=== PATIENT | male | born 1965 | race Two or more races ===

== ENCOUNTER 2019-05-16 11:36 | Emergency (ER) | payer SELFPAY ==
[~2019-05-16] VITALS: Ht 177.8 cm; Wt 99.8 kg
[2019-05-16 12:23] VITALS: BP 173/101
[2019-05-16] MEDS ORDERED: cloNIDine HCL 0.1 MG TAB PO ONE (13:15)
[2019-05-16 13:39] LABS: Basophils # (auto) 0.1 uL; Basophils % (auto) 0.9 % (0.0-2.0); Eosinophils # (auto) 0.1 uL; Eosinophils % (auto) 1.6 % (0.0-7.0); Hematocrit 50.7 % (41.0-53.0); Hemoglobin 17.1 g/dL (13.5-17.5); Lymphocytes # (auto) 2.5 uL; Lymphocytes % (auto) 27.3 % (10.0-50.0); Mean Corpuscular Hemoglobin 32.4 pg (28.0-32.0); Mean Corpuscular Hgb Conc. 33.7 g/dL (32.0-36.0); Mean Corpuscular Volume 96.2 fL (80.0-100.0); Monocytes # (auto) 0.4 uL; Monocytes % (auto) 4.6 % (0.0-12.0); Neutrophils # (auto) 6.1 uL; Neutrophils % (auto) 65.6 % (37.0-80.0); Nucleated Red Blood Cells % 0.1 %; Platelet Count (auto) 261 10^3/uL (140-450); Red Blood Cells 5.27 10^6/uL (4.5-5.90); Red Cell Distribution Width 15.6 % (11.8-14.3); White Blood Cell 9.3 10^3/uL (4.4-10.8)
[2019-05-16 13:57] LABS: Albumin 4.3 g/dL (3.4-5.0); BUN/Creatinine Ratio 9.7; Calcium 9.2 mg/dL (8.5-10.1); Potassium 4.1 mmol/L (3.5-5.1)
[2019-05-16 14:00] LABS: Bilirubin, Total 0.3 mg/dL (0.2-1.0)
[2019-05-16] MEDS ORDERED: cefTRIAXone 1GM/50ML D5W 50 ML IV ONE (14:00)
== END 2019-05-16 16:40 | disposition left against medical advice (07) ==
LOC: ER 11:43
DX: J18.1 Lobar pneumonia, unspecified organism (principal); M79.672 Pain in left foot; I10 Essential (primary) hypertension; F17.210 Nicotine dependence, cigarettes, uncomplicated; Z53.29 Procedure and treatment not carried out because of patient's decision for other reasons
CPT/HCPCS: 36415; 71046; 73630; 80053; 83735; 84484; 85025; 93005; 94761

== ENCOUNTER 2019-05-17 13:29 | Inpatient (IN) | payer SELFPAY ==
[~2019-05-17] VITALS: Ht 177.8 cm; Wt 99.8 kg
[2019-05-17 14:11] LABS: Basophils # (auto) 0.1 uL; Basophils % (auto) 1.2 % (0.0-2.0); Eosinophils # (auto) 0.2 uL; Eosinophils % (auto) 1.7 % (0.0-7.0); Hematocrit 49.8 % (41.0-53.0); Lymphocytes # (auto) 2.6 uL; Lymphocytes % (auto) 28.1 % (10.0-50.0); Mean Corpuscular Hemoglobin 32.6 pg (28.0-32.0); Mean Corpuscular Hgb Conc. 34.1 g/dL (32.0-36.0); Mean Corpuscular Volume 95.5 fL (80.0-100.0); Monocytes # (auto) 0.5 uL; Monocytes % (auto) 5.5 % (0.0-12.0); Neutrophils % (auto) 63.5 % (37.0-80.0); Nucleated Red Blood Cells % 0.1 %; Platelet Count (auto) 259 10^3/uL (140-450); Red Blood Cells 5.22 10^6/uL (4.5-5.90); Red Cell Distribution Width 15.6 % (11.8-14.3); White Blood Cell 9.4 10^3/uL (4.4-10.8)
[2019-05-17 14:31] LABS: Alanine Aminotransferase 20 U/L (16-61); Albumin 3.8 g/dL (3.4-5.0); Anion Gap 5 (5-15); Aspartate Aminotransferase 14 U/L (15-37); BUN/Creatinine Ratio 13.7; Blood Urea Nitrogen 14 mg/dL (7-18); Calcium 8.9 mg/dL (8.5-10.1); Carbon Dioxide 28 mmol/L (21-32); Chloride 108 mmol/L (98-107); GFR African American 98 mL/min; GFR Non-African American 81 mL/min; Glucose 127 mg/dL (74-106); Potassium 3.8 mmol/L (3.5-5.1); Sodium 141 mmol/L (136-145)
[2019-05-17 14:36] LABS: Alkaline Phosphatase 58 U/L (45-117); Bilirubin, Total 0.7 mg/dL (0.2-1.0); Total Protein 7.5 g/dL (6.4-8.2)
[2019-05-17] MEDS ORDERED: SODIUM CHLORIDE 0.9% 1,000 ML IV ONE (15:17)
[2019-05-17] MEDS ORDERED: cefTRIAXone 1GM/50ML D5W 50 ML IV ONE (15:30)
[2019-05-17] MEDS ORDERED: MORPHINE SULF INJ 2 MG/ML SYRINGE 1ML IV PRN (17:15)
[2019-05-17] MEDS ORDERED: ACETAMINOPHEN 500 MG TAB PO PRN (17:15)
[2019-05-17] MEDS ORDERED: DEXTROSE (50%) 50ML SYRG IV PRN (17:15)
[2019-05-17] MEDS ORDERED: LACTULOSE 20Gm/30ML SOLN PO PRN (17:15)
[2019-05-17] MEDS ORDERED: ALBUTEROL SULF 2.5 MG/0.5ML(0.5%) NEB SOLN NEB PRN (17:15)
[2019-05-17] MEDS ORDERED: TEMAZEPAM 15 MG CAP PO PRN (17:15)
[2019-05-17] MEDS ORDERED: PROMETHAZINE HCL 25 MG/ML 1ML IV PRN (17:15)
[2019-05-17] MEDS ORDERED: traMADol HCL 50 MG TAB PO PRN (17:15)
[2019-05-17] MEDS ORDERED: NITROGLYCERIN 0.4 MG SL TAB SL PRN (17:15)
[2019-05-17] MEDS: LEVOFLOXACIN 500MG 100 ML IV SCH (17:34)
[2019-05-17] MEDS ORDERED: LABETALOL HCL 5 MG/ML ML 20ML VIAL IV PRN (18:00)
[2019-05-17] MEDS: ALBUTEROL SULF 2.5 MG/0.5ML(0.5%) NEB SOLN NEB SCH (18:36)
[2019-05-17 18:54] VITALS: BP 159/98
--- NOTE | 2019-05-17 19:20 | NUR ---
Opening shift note Assumed care of patient who is A&O x4. Currently on RA with no distress noted. Denies SOB/pain at this time. POC discussed with patient who verbalizes understanding. Patient indicated that MICHELLE is his daughter, Lillian . Password: [id number]. Bed is in low locked position with side rails up x2. Call light is within reach and patient encouraged to call for assistance when needed. Will continue to monitor for changes PRN.
[2019-05-17 20:00] VITALS: BP 149/84
[2019-05-17 21:46] VITALS: BP 117/49
[2019-05-17] MEDS: METOPROLOL TARTRATE 25 MG TAB PO SCH (21:48)
[2019-05-17] MEDS: ACCU-CHEK COMFORT CURVE STRIP VI SCH (21:51)
--- NOTE | 2019-05-17 21:51 | NUR ---
Blood glucose checked and is 99mg/dL.
[2019-05-18] MEDS: ALBUTEROL SULF 2.5 MG/0.5ML(0.5%) NEB SOLN NEB SCH ×3 (00:13→11:23)
[2019-05-18 05:20] VITALS: BP 145/109
--- NOTE | 2019-05-18 05:50 | NUR ---
Elevated Blood pressure. Blood pressure is 160/97, heart rate 80. Labetalol administered according to orders. Telemetry monitoring is in place. Will reassess.
[2019-05-18] MEDS: ACCU-CHEK COMFORT CURVE STRIP VI SCH (06:44)
--- NOTE | 2019-05-18 06:44 | NUR ---
Reassessment Blood pressure reassessed and is 158/91, heart rate 81.
--- NOTE | 2019-05-18 06:45 | NUR ---
Blood glucose Blood glucose assessed as ordered and is 119 mg/dl.
[2019-05-18 07:12] LABS: Cholesterol 233 mg/dL (< 200); LDL Cholesterol 168 mg/dL (< 100); Triglycerides 241 mg/dL (< 150)
[2019-05-18 07:17] LABS: HDL Cholesterol 40 mg/dL (40-59)
--- NOTE | 2019-05-18 07:30 | NUR ---
Opening Shift Note Assumed care of patient, asleep on bed resting comfortably. no signs of shortness of breath noted, will continue to monitor for changes Q1hr and PRN.
[2019-05-18 08:00] VITALS: BP 140/89
--- NOTE | 2019-05-18 08:40 | NUR ---
pt stated no sputum is coming out, no chest tightness or chest pain, pt instructed to collect urine sample. urine container provided for drug screen.
[2019-05-18] MEDS ORDERED: PANTOPRAZOLE 40 MG TAB PO SCH (10:00)
[2019-05-18] MEDS ORDERED: ENOXAPARIN SOD 40 MG/0.4 ML SYRINGE SC SCH (10:00)
[2019-05-18] MEDS: METOPROLOL TARTRATE 25 MG TAB PO SCH (10:09)
[2019-05-18] MEDS: LEVOFLOXACIN 500MG 100 ML IV SCH (10:09)
--- NOTE | 2019-05-18 11:20 | NUR ---
DR. SONG AT BEDSIDE PT MADE AWARE HE WILL UNDERGO CT ANGIOGRAM OF THE CHEST TO CHECK BLOOD CLOTS, CARDIOLOGY CONSULT AND ECHOCARDIOGRAM. Addendum: 05/18/19 at 1142 by Linda Mane RN DR. SONG MADE AWARE PT IS NOT DIABETIC AND BLOOD SUGAR HAS BEEN NORMAL, HE ORDERED TO DC ACCU CHECK.
--- NOTE | 2019-05-18 11:23 | NUR ---
Respiratory note: SCHEDULED MED NEB TX NOT GIVEN. PT REFUSED TX AT THIS TIME. NO RESP DISTRESS NOTED. FAMILY AND RN AT BEDSIDE AND AWARE OF PT REFUSING. PT KNOWS TO HAVE RT PAGED IF TX IS NEEDED BEFORE NEXT SCHEDULED TX IS DUE.
[2019-05-18] MEDS ORDERED: ATORVASTATIN 20 MG TAB PO ONE (11:30)
[2019-05-18] MEDS ORDERED: IOHEXOL 350 MG/ML 100ML IJ ONE (12:16)
--- NOTE | 2019-05-18 12:34 | NUR ---
DR. CORDERO AT NURSES STATION MADE AWARE OF THE CONSULT.
[2019-05-18 13:53] VITALS: BP 144/87
--- NOTE | 2019-05-18 14:20 | NUR ---
Pt refused tele monitor, pt educated on the importance of having it on but still refused.
--- NOTE | 2019-05-18 14:24 | NUR ---
paged Dr. Terrell pt's family waiting for Dr. Terrell at bedside.
--- NOTE | 2019-05-18 14:27 | NUR ---
DR. SONG CALLED PER DR. SONG HE IS STILL IN ICU SEEING 3 PTS AND THEN HE WILL COME SEE THE PT AT 1515.
--- NOTE | 2019-05-18 15:05 | NUR ---
DR SONG AT BEDSIDE PT MADE AWARE REGARDING THE RESULTS OF HIS CT CHEST ANGIOGRAM, AND ULTRASOUND OF LOWER EXTREMITIES. PT VERBALIZED HE WANT TO GO HOME. DR SONG TOLD THE PT THAT HE NEEDS TO WAIT FOR HIS ECHOCARDIOGRAM RESULT AND DR. CORDERO, THE PIN INSERTER TO COME SEE HIM. PT WAS INFORMED HE MIGHT NEED A STRESS TEST OR ANGIOGRAM. PT STILL REFUSED. DR. SONG TOLD THE PT THAT HE IS RISK FOR HEART ATTACK THAT WILL LEAD TO , PT STILL REFUSED TO STAY. THE ISSUE WAS DISCUSSED IN THE PRESENCE OF SUKUMAR BOLTON, DAUGHTER EUN FINLEY AND SON ADRI FINLEY. PT WAS CONVINCED BY THE FAMILY TO STAY BUT STILL REFUSED. DR. SONG SIGNED THE FORM FOR PT LEAVING AMA, PT SIGNED. PT IS ALERT AND ORIENTED AND AWARE OF THE RISK OF GOING HOME AMA, PT WAS EDUCATED. PT ADVISED TO RETURN TO EMERGENCY ROOM IF SYMPTOMS GET WORST.
--- NOTE | 2019-05-18 15:35 | NUR ---
AMA Note PT LEFT AMA, PT ENCOURAGED TO STAY FOR FURTHER TREATMENT BUT HE REFUSED, PATIENT ADVISED OF THE RISKS AND BENEFITS OF LEAVING AMA, PT VERBALIZED UNDERSTANDING. PT ENCOURAGED TO RETURN TO ER IF SYMPTOMS DO NOT IMPROVE.
[2019-05-18] MEDS ORDERED: ATORVASTATIN 20 MG TAB PO SCH (22:00)
== END 2019-05-18 15:35 | disposition left against medical advice (07) | DRG 195 ==
LOC: ER 13:29 → TELE 13:30 → TELE-WESTW 18:00
PROVIDERS: ADMIT Internal Medicine; ATTEND Internal Medicine
DX: J18.1 Lobar pneumonia, unspecified organism (principal); I10 Essential (primary) hypertension; F17.210 Nicotine dependence, cigarettes, uncomplicated; E78.00 Pure hypercholesterolemia, unspecified; E66.9 Obesity, unspecified; I16.0 Hypertensive urgency; R73.9 Hyperglycemia, unspecified; M79.672 Pain in left foot; Z53.29 Procedure and treatment not carried out because of patient's decision for other reasons; Z82.49 Family history of ischemic heart disease and other diseases of the circulatory system; Z79.899 Other long term (current) drug therapy; Z68.31 Body mass index [BMI] 31.0-31.9, adult
CPT/HCPCS: 36415; 71046; 71275; 80053; 80061; 82962; 83036; 83880; 84484; 85025; 85379; 85652; 86141; 93005; 93306; 93926; 93971; 94640; 94761; 96365; G0378; J0696; J1956

== ENCOUNTER 2021-12-15 15:13 | Emergency (ER) | payer MEDICAID ==
[~2021-12-15] VITALS: Ht 177.8 cm; Wt 99.8 kg
[2021-12-15 17:37] VITALS: BP 147/87
[2021-12-15] MEDS ORDERED: HYDROcodone-ACET 10/325MG TAB PO ONE (20:15)
[2021-12-15] MEDS ORDERED: CEPH-509 PO (22:50)
[2021-12-15] MEDS ORDERED: CLIN300C8 PO (22:50)
== END 2021-12-15 23:08 | disposition home or self-care (01) ==
LOC: EDBD 15:13 → ER 15:13
DX: N43.3 Hydrocele, unspecified (principal); F17.210 Nicotine dependence, cigarettes, uncomplicated
CPT/HCPCS: 74176; 76870; 99284; J7030